=== PATIENT | male | born 1980 | race Caucasian/White ===

== ENCOUNTER 2017-07-29 10:35 | Emergency (ER) | payer OTHER ==
[~2017-07-29 10:35] MED LIST: AUGMENTIN 875 M1 TAB PO; BACTRIM DS 8001 TA1 PO; CEPHALEXIN500 M1 PO; CLARITIN10 MG PO; FLEXERIL10 MG PO; IBU-8800 MG PO; KEFLEX500 MG PO; MEDROL DOSEPAK4 MG PO; MOTRIN800 MG PO; VICODIN 500 MG-1 TAB PO; VICODIN ES 7501 TAB PO
[2017-07-29] MEDS ORDERED: NORCO 5-325 TA1 EACH PO (12:30)
== END 2017-07-29 13:05 | disposition home or self-care (01) ==
LOC: ED 10:35
DX: S62.102A Fracture of unspecified carpal bone, left wrist, initial encounter for closed fracture (principal); F17.200 Nicotine dependence, unspecified, uncomplicated; W11.XXXA Fall on and from ladder, initial encounter; Y93.89 Activity, other specified; Y92.89 Other specified places as the place of occurrence of the external cause; Y99.0 Civilian activity done for income or pay

== ENCOUNTER 2019-01-24 14:56 | Emergency (ER) | payer BC ==
[~2019-01-24] VITALS: Ht 180.3 cm; Wt 77.1 kg
[~2019-01-24 14:56] MED LIST changes: +NORCO 5-325 TA1 EACH PO
[2019-01-24] MEDS ORDERED: CEPHALEXIN500 M1 PO (17:29)
== END 2019-01-24 17:42 | disposition home or self-care (01) ==
LOC: ED 14:56
DX: S61.211A Laceration without foreign body of left index finger without damage to nail, initial encounter (principal); W23.0XXA Caught, crushed, jammed, or pinched between moving objects, initial encounter; Y93.89 Activity, other specified; Y92.89 Other specified places as the place of occurrence of the external cause; Y99.8 Other external cause status

== ENCOUNTER → 2021-10-01 | Outpatient (CLI) | payer OTHER | END | disposition home or self-care (01) | LOC: COVID19 16:29 | PROVIDERS: ATTEND Internal Medicine | DX: Z11.52 Encounter for screening for COVID-19 (principal) ==